=== PATIENT | female | born 1970 | race Two or more races ===

== ENCOUNTER 2023-10-22 09:07 | Emergency (ER) | payer OTHER ==
[~2023-10-22] VITALS: Ht 177.8 cm; Wt 73.9 kg
[2023-10-22] MEDS ORDERED: DICLOFENAC SODI75 MG PO (10:19)
== END 2023-10-22 10:28 | disposition home or self-care (01) ==
LOC: ER 09:08
DX: S92.912A Unspecified fracture of left toe(s), initial encounter for closed fracture (principal); S90.32XA Contusion of left foot, initial encounter; S90.122A Contusion of left lesser toe(s) without damage to nail, initial encounter; X58.XXXA Exposure to other specified factors, initial encounter; Y93.89 Activity, other specified; Y92.89 Other specified places as the place of occurrence of the external cause; Y99.8 Other external cause status; Z88.0 Allergy status to penicillin

== ENCOUNTER 2023-11-20 13:16 | Outpatient (CLI) | payer OTHER ==
[~2023-11-20 13:16] MED LIST: DICLOFENAC SODI75 MG PO
== END 2023-11-20 14:29 | disposition home or self-care (01) ==
LOC: RAD 13:16
DX: M79.672 Pain in left foot (principal)

== ENCOUNTER 2024-05-10 09:33 | Emergency (ER) | payer OTHER ==
[~2024-05-10] VITALS: Ht 177.8 cm; Wt 74.8 kg
[2024-05-10] MEDS ORDERED: ORPHENADRINE CITRATE 30 MG/ML AMPUL IM ONE (10:45)
[2024-05-10] MEDS ORDERED: KETOROLAC TROMETHAMINE 60 MG VIAL IM ONE (10:45)
== END 2024-05-10 15:10 | disposition home or self-care (01) ==
LOC: ER 09:33
DX: S00.83XA Contusion of other part of head, initial encounter (principal); V19.9XXA Pedal cyclist (driver) (passenger) injured in unspecified traffic accident, initial encounter; Y93.55 Activity, bike riding; Y92.482 Bike path as the place of occurrence of the external cause; S49.82XA Other specified injuries of left shoulder and upper arm, initial encounter; Z88.0 Allergy status to penicillin

== ENCOUNTER 2025-02-15 06:29 | Emergency (ER) | payer OTHER ==
[~2025-02-15] VITALS: Ht 177.8 cm; Wt 77.1 kg
[2025-02-15] MEDS ORDERED: DEXAMETHASONE SODIUM PHOSPHATE 4 MG/ML VIAL IM STA (08:37)
[2025-02-15] MEDS ORDERED: DEXAMETHASONE SODIUM PHOSPHATE 4 MG/ML VIAL ONE (08:39)
== END 2025-02-15 08:57 | disposition home or self-care (01) ==
LOC: ER 06:29
DX: J11.1 Influenza due to unidentified influenza virus with other respiratory manifestations (principal); Z88.0 Allergy status to penicillin